=== PATIENT | female | born 1980 | race Asian ===

== ENCOUNTER 2019-05-03 07:29 | Emergency (ER) | payer OTHER ==
[~2019-05-03] VITALS: Wt 70.0 kg
[2019-05-03 07:31] VITALS: BP 110/56; PULSE 78; RESP 18
== END 2019-05-03 09:33 | disposition home or self-care (01) ==
LOC: FTE 07:29
DX: O26.892 Other specified pregnancy related conditions, second trimester (principal); R10.2 Pelvic and perineal pain; Z3A.17 17 weeks gestation of pregnancy
CPT/HCPCS: 36415; 76805; 81003; 84702; 85025; 86900; 86901; 87086